=== PATIENT | male | born 1960 | race Caucasian/White ===

== ENCOUNTER 2019-01-01 17:28 | Emergency (ER) | payer OTHER ==
[~2019-01-01] VITALS: Ht 175.3 cm; Wt 76.6 kg
[~2019-01-01 17:28] MED LIST: PANT40TA3 PO
[2019-01-01 17:36] VITALS: Ht 175.3 cm; Wt 76.6 kg
[2019-01-01] MEDS ORDERED: ONDANSETRON 4 MG INJ IV STA (18:54)
[2019-01-01] MEDS ORDERED: KETOROLAC 30 MG INJ IV STA (18:54)
[2019-01-01] MEDS ORDERED: PANTOPRAZOLE 40 MG INJ IV ONE (19:00)
[2019-01-01 20:46] VITALS: BP 125/81; PULSE 80; RESP 20
== END 2019-01-01 20:47 | disposition home or self-care (01) ==
LOC: EDSEX 17:28 → E/R 17:28
DX: K76.0 Fatty (change of) liver, not elsewhere classified (principal); E11.65 Type 2 diabetes mellitus with hyperglycemia
CPT/HCPCS: 36415; 76705; 80053; 81003; 83690; 85025; 93005; 96374; 96375; 99285; C9113; J1885; J2405